=== PATIENT | female | born 1995 | race Caucasian/White ===

== ENCOUNTER 2017-02-08 12:12 | Emergency (ER) | payer OTHER ==
[~2017-02-08] VITALS: Ht 160 cm; Wt 58.7 kg
[2017-02-08] MEDS ORDERED: MONOTAB PO (12:24)
[2017-02-08 13:43] LABS: CONTROL LINE UCG INT CTR LINE PRESENT
[2017-02-08 15:12] LABS: BASO % 0.3 % (0.0-1.0); EOS # 0.2 K/mm3 (0.0-0.50); LARGE UNSTAINED CELL # 0.1 K/mm3 (0.0-0.4); LYMPH # 2.4 K/mm3 (1.5-6.5); LYMPH % 25.8 % (24.0-44.0); MEAN CORPUSCULAR HGB CONC 33.7 g/dl (32.0-36.5); MEAN CORPUSCULAR VOLUME 94.8 fl (80.0-96.0); MONO # 0.5 K/mm3 (0.0-0.8); MONO % 5.8 % (0.0-5.0); NEUTROPHILS # 5.9 K/mm3 (1.8-7.7); PLATELET COUNT, AUTOMATED 225 k/mm3 (150-450); RED CELL DISTRIBUTION WIDTH 12.3 % (11.5-14.5); WHITE BLOOD COUNT 9.1 K/mm3 (4.0-10.0)
[2017-02-08 15:15] LABS: ALBUMIN 3.7 GM/DL (3.2-5.2); ALBUMIN/GLOBULIN RATIO 1.19 (1.00-1.93); ALKALINE PHOSPHATASE 52 U/L (45-117); ALT/SGPT 22 U/L (12-78); ANION GAP 7 MEQ/L (8-16); AST/SGOT 20 U/L (15-37); BILIRUBIN,TOTAL 0.4 MG/DL (0.2-1.0); BLOOD UREA NITROGEN 12 MG/DL (7-18); CALCIUM LEVEL 8.3 MG/DL (8.5-10.1); CARBON DIOXIDE LEVEL 28 MEQ/L (21-32); CHLORIDE LEVEL 107 MEQ/L (98-107); CREATININE FOR GFR 0.66 MG/DL (0.55-1.02); GLOMERULAR FILTRATION RATE > 60.0 (>60); GLUCOSE, FASTING 85 MG/DL (70-105); POTASSIUM SERUM 4.2 MEQ/L (3.5-5.1); SODIUM LEVEL 142 MEQ/L (136-145); TOTAL PROTEIN 6.8 GM/DL (6.4-8.2)
[2017-02-08] MEDS ORDERED: GASTROGRAFIN SOLUTION 30ML (Q9963) PO ONE (16:00)
[2017-02-08] MEDS ORDERED: GASTROGRAFIN SOLUTION 30ML PO ONE (16:30)
[2017-02-08] MEDS ORDERED: ISOVUE-370 76% 100ML VIAL (Q9967) As Ordered ONE (17:18)
--- NOTE | 2017-02-08 18:00 | REPUSA ---
CT of the abdomen and pelvis with contrast Clinical statement: Pain. Technique: Multiple axial CT images were obtained from the base of the lungs through the floor of the pelvis utilizing 5 mm axial slices after administration of nonionic intravenous contrast. Coronal an d sagittal reconstructions were also obtained. No comparison is available. Findings: Chest: The visualized lung bases are clear. Abdomen: The liver, spleen, pancreas, kidneys, gallbladder, and adrenal glands are unremarkable. The aorta is within normal limits. There is no evidence of abdominal lymphadenopathy or ascites. Pelvis: The bowel is unremarkable, with no obstructive or inflammatory changes. The urinary bladder i s within normal limits. The other pelvic structures appear grossly intact. There is no evidence of pe lvic lymphadenopathy or ascites. Bones: There are no suspicious osseous abnormalities seen. Impression: Unremarkable CT examination of the abdomen and pelvis.
[2017-02-08 18:24] VITALS: BP 149/87
== END 2017-02-08 18:25 | disposition home or self-care (01) ==
LOC: M ED 12:12
DX: K92.1 Melena (principal); R19.7 Diarrhea, unspecified; R10.9 Unspecified abdominal pain; Z91.040 Latex allergy status; Z79.899 Other long term (current) drug therapy
CPT/HCPCS: 36415; 74177; 80053; 81001; 84703; 85025; 87088; 99283; Q9963; Q9967

== ENCOUNTER → 2018-02-12 | Outpatient (CLI) | payer OTHER | LOC: M WUC 18:18 | DX: S90.01XA Contusion of right ankle, initial encounter (principal); X58.XXXA Exposure to other specified factors, initial encounter; Y92.9 Unspecified place or not applicable | CPT/HCPCS: 73610 ==

== ENCOUNTER → 2018-09-17 | Outpatient (CLI) | payer OTHER ==
[~2018-09-17] MED LIST: MONOTAB PO
--- NOTE | 2018-09-17 11:43 | REP ---
RIGHT FINGERS, FOUR VIEWS: HISTORY: Pain. There is no acute fracture or dislocation. The joint spaces are normal in appearance. There is no radiopaque foreign body. IMPRESSION: There is no acute fracture or dislocation. Electronically Signed by Maynor Livingston MD 09/17/2018 11:58 A
== END ==
LOC: M WUC 10:44
PROVIDERS: ATTEND Physician Assistant
DX: M79.644 Pain in right finger(s) (principal)

== ENCOUNTER → 2019-09-05 | Outpatient (CLI) | payer BC ==
[~2019-09-05] MED LIST changes: +CONRAY-43 43% 50ML VIAL (Q9960) As Ordered ONE; +PROHANCE 279.3MG/ML 5ML VIAL (A9576) As Ordered ONE
--- NOTE | 2019-09-05 10:26 | REP ---
MR ARTHROGRAM OF THE left SHOULDER: TECHNIQUE: Axial T2 fat sat, coronal oblique T1, T2 fat sat, post arthrogram axial T1 fat sat, proton density, coronal oblique T1 fat sat, T2 sat, sagittal oblique T2 fat sat, ABER T1 fat sat. The rotator cuff tendons are intact. There is no evidence of rotator cuff tendon tear. The acromioclavicular joint is well aligned without significant hypertrophic change. There is type 1 acromion. Biceps tendon is seen within the bicipital groove, with no tenosynovitis. There is no Hill-Sachs deformity. The deltoid muscle demonstrates no abnormal signal. Biceps labral complex is intact. However, there does appear there does appear to be a partial tear of the superior labrum. Other portions of the labrum appear intact. There is no paralabral cyst. A few tiny subcortical cysts are seen in the superolateral humeral head. There is no bone marrow edema or occult fracture. Small amount of subacromial fluid is seen. IMPRESSION: Partial SLAP tear. No rotator cuff tear. Mild fluid in the subacromial bursa. Electronically Signed by Jt Ferreira MD 09/05/2019 10:59 A
--- NOTE | 2019-09-05 18:14 | REP ---
Procedure: Left shoulder arthrogram The procedure was performed under the direct supervision of Dr. Ferreira. History: Left shoulder instability The benefits and risks including but not limited to pain, infection, bleeding and anaphylaxis were explained to the patient and informed consent was obtained. Technique: The left glenohumeral joint space was localized using fluoroscopic guidance. The skin was prepped and draped in a sterile fashion. 1% lidocaine was used as a local anesthetic. Using fluoroscopic guidance a 22 gauge spinal needle was inserted and advanced into the joint. 0.5 ml of Conray 43 was injected to verify placement. 11 ml of a solution containing 20 ml of sterile saline and 0.15 ml of ProHance was injected into the joint. The needle was removed and the patient was taken to MRI for postprocedural imaging. The the patient tolerated the procedure well and there were no immediate complications. Less than 6 seconds of fluoro time was utilized for this procedure. Electronically Signed by CARLOS Mercedes 09/05/2019 05:42 P Electronically Signed by Jt Ferreira MD 09/05/2019 06:05 P
== END ==
LOC: M RADPRO 06:35
PROVIDERS: ATTEND Orthopaedic Surgery
DX: M25.312 Other instability, left shoulder (principal); M75.92 Shoulder lesion, unspecified, left shoulder
CPT/HCPCS: 23350; 73223; 77002; A9576; Q9960

== ENCOUNTER → 2019-09-26 | Outpatient (REF) | payer BC ==
[~2019-09-26] MED LIST changes: -CONRAY-43 43% 50ML VIAL (Q9960) As Ordered ONE; -PROHANCE 279.3MG/ML 5ML VIAL (A9576) As Ordered ONE
[2019-09-26 13:55] LABS: BASO % 0.6 % (0.0-1.0); EOS # 0.2 10^3/uL (0.0-0.5); EOS % 4.4 % (0.0-3.0); HEMATOCRIT 37.7 % (36.0-47.0); HEMOGLOBIN 12.9 g/dl (12.0-15.5); LYMPH # 1.9 10^3/uL (1.5-5.0); LYMPH % 36.9 % (24.0-44.0); MEAN CORPUSCULAR HEMOGLOBIN 32.1 pg (27.0-33.0); MEAN CORPUSCULAR HGB CONC 34.2 g/dl (32.0-36.5); MEAN CORPUSCULAR VOLUME 93.8 fl (80.0-96.0); MONO # 0.5 10^3/uL (0.0-0.8); MONO % 9.2 % (0.0-5.0); NEUTROPHILS # 2.5 10^3/uL (1.5-8.5); NEUTROPHILS % 48.7 % (36.0-66.0); PLATELET COUNT, AUTOMATED 225 10^3/uL (150-450); RED BLOOD COUNT 4.02 10^6/uL (4.00-5.40); WHITE BLOOD COUNT 5.2 10^3/uL (4.0-10.0)
[2019-09-26 14:08] LABS: ALBUMIN 3.4 GM/DL (3.2-5.2); ALT/SGPT 23 U/L (12-78); BILIRUBIN,TOTAL 0.2 MG/DL (0.2-1.0); BLOOD UREA NITROGEN 15 MG/DL (7-18); CALCIUM LEVEL 8.9 MG/DL (8.5-10.1); CARBON DIOXIDE LEVEL 28 MEQ/L (21-32); CHLORIDE LEVEL 108 MEQ/L (98-107); CHOLESTEROL LEVEL 178 MG/DL (<200); CREATININE FOR GFR 0.66 MG/DL (0.55-1.30); FREE T4 0.91 NG/DL (0.76-1.46); GLOMERULAR FILTRATION RATE > 60.0 (>60); GLUCOSE, FASTING 75 MG/DL (70-100); HDL CHOLESTEROL 62 MG/DL (>40); LDL CHOLESTEROL 100 MG/DL (<100); NON-HDL-C 116 MG/DL; POTASSIUM SERUM 4.4 MEQ/L (3.5-5.1); SODIUM LEVEL 139 MEQ/L (136-145); THYROID STIMULATING HORMONE 0.623 uIU/ML (0.358-3.740); TOTAL PROTEIN 6.7 GM/DL (6.4-8.2); TRIGLYCERIDES LEVEL 82 MG/DL (<150)
[2019-09-26 14:14] LABS: HEMOGLOBIN A1c 4.9 %
== END ==
LOC: M SFHCPLAZ 10:38
PROVIDERS: ATTEND Physician Assistant
DX: Z00.00 Encounter for general adult medical examination without abnormal findings (principal); Z13.220 Encounter for screening for lipoid disorders; Z13.29 Encounter for screening for other suspected endocrine disorder; Z13.1 Encounter for screening for diabetes mellitus

== ENCOUNTER 2020-01-04 20:36 | Emergency (ER) | payer BC ==
[~2020-01-04] VITALS: Ht 165.1 cm; Wt 57.3 kg
[2020-01-04] MEDS ORDERED: LEXA5TAB13 PO (20:45)
[2020-01-04] MEDS ORDERED: NS 1,000 ML IV ONE (21:30)
[2020-01-04 22:03] LABS: BASO % 0.7 % (0.0-1.0); EOS # 0.2 10^3/uL (0.0-0.5); EOS % 2.9 % (0.0-3.0); HEMATOCRIT 35.5 % (36.0-47.0); HEMOGLOBIN 11.9 g/dl (12.0-15.5); LYMPH # 2.6 10^3/uL (1.5-5.0); LYMPH % 43.9 % (24.0-44.0); MEAN CORPUSCULAR HEMOGLOBIN 31.1 pg (27.0-33.0); MEAN CORPUSCULAR HGB CONC 33.5 g/dl (32.0-36.5); MEAN CORPUSCULAR VOLUME 92.7 fl (80.0-96.0); MONO # 0.6 10^3/uL (0.0-0.8); MONO % 9.4 % (0.0-5.0); NEUTROPHILS # 2.5 10^3/uL (1.5-8.5); NEUTROPHILS % 42.9 % (36.0-66.0); PLATELET COUNT, AUTOMATED 228 10^3/uL (150-450); RED BLOOD COUNT 3.83 10^6/uL (4.00-5.40); WHITE BLOOD COUNT 5.8 10^3/uL (4.0-10.0)
[2020-01-04 22:38] LABS: ALBUMIN 3.9 GM/DL (3.2-5.2); ALT/SGPT 22 U/L (12-78); BILIRUBIN,DIRECT < 0.1 MG/DL (0.0-0.2); BILIRUBIN,TOTAL 0.4 MG/DL (0.2-1.0); BLOOD UREA NITROGEN 13 MG/DL (7-18); CALCIUM LEVEL 9.1 MG/DL (8.5-10.1); CARBON DIOXIDE LEVEL 27 MEQ/L (21-32); CHLORIDE LEVEL 109 MEQ/L (98-107); CREATININE FOR GFR 0.73 MG/DL (0.55-1.30); GLOMERULAR FILTRATION RATE > 60.0 (>60); GLUCOSE, FASTING 82 MG/DL (70-100); LIPASE 94 U/L (73-393); POTASSIUM SERUM 4.2 MEQ/L (3.5-5.1); SODIUM LEVEL 142 MEQ/L (136-145)
[2020-01-04] MEDS: GASTROGRAFIN SOLUTION 30ML PO SCH ×2 (22:54→23:15)
[2020-01-04 23:01] LABS: HCG, SERUM QUALITATIVE NEGATIVE (NEGATIVE)
[2020-01-04] MEDS ORDERED: ISOVUE-370 76% 100ML VIAL As Ordered ONE (23:13)
--- NOTE | 2020-01-05 | REPVR ---
PROCEDURE INFORMATION: Exam: CT Abdomen And Pelvis With Contrast Exam date and time: 01/04/2020 10:15 PM Age: 24 years old Clinical indication: Abdominal pain; Localized; Right lower quadrant (rlq); Additional info: Rlq pain TECHNIQUE: Imaging protocol: Computed tomography of the abdomen and pelvis with intravenous contrast. Radiation optimization: All CT scans at this facility use at least one of these dose optimization techniques: automated exposure control; mA and/or kV adjustment per patient size (includes targeted exams where dose is matched to clinical indication); or iterative reconstruction. Contrast material: ISO; Contrast volume: 100 ml; Contrast route: INTRAVENOUS (IV); Other contrast: Oral, ggraphin, 600; COMPARISON: CT ABD/PEL W/IV ORAL CONTRAS 2017-02-08 17:16 FINDINGS: Liver: Normal. No mass. Gallbladder and bile ducts: Normal. No calcified stones. No ductal dilation. Pancreas: Normal. No ductal dilation. Spleen: Normal. No splenomegaly. Adrenals: Normal. No mass. Kidneys and ureters: Normal. No hydronephrosis. Stomach and bowel: Constipation. Appendix: Normal appendix. Intraperitoneal space: Unremarkable. No free air. No significant fluid collection. Vasculature: Unremarkable. No abdominal aortic aneurysm. Lymph nodes: Unremarkable. No enlarged lymph nodes. Bladder: Unremarkable as visualized. Reproductive: IUD present appropriately positioned. Uterus tilted towards the left. Bones/joints: Unremarkable. No acute fracture. Soft tissues: Unremarkable. IMPRESSION: 1. Constipation. 2. Normal appendix. Electronically signed by: Fredy Reynolds On 01/05/2020 00:00:42 AM
--- NOTE | 2020-01-05 01:36 | REPVR ---
PROCEDURE INFORMATION: Exam: US Pelvis Complete, Transabdominal and US Pelvis, Transvaginal Exam date and time: 01/05/2020 1:00 AM Age: 24 years old Clinical indication: Pelvic pain; Additional info: Rlq pain R/O ovarian cyst/torsion/iud complication TECHNIQUE: Imaging protocol: Real-time transabdominal and transvaginal pelvic ultrasound (complete) with image documentation. Transvaginal imaging was used for better evaluation of the endometrium and adnexa. COMPARISON: CT ABD/PEL W/IV ORAL CONTRAS 01/04/2020 11:29 PM FINDINGS: Uterus/cervix: Uterus measures 6.2 x 2.1 x 3.5 cm. Uterus is anteverted. IUD in the uterus. No uterine masses. Endometrial stripe measures 3.4 mm in thickness. Right adnexa: Right ovary measures 2.0 x 1.4 x 1.9 cm. No masses. Normal vascular flow. Left adnexa: Left ovary measures 1.4 x 1.4 x 1.2 cm. No masses. Normal vascular flow. Free fluid: Trace fluid in the cul-de-sac. Bladder: Bladder is unremarkable. IMPRESSION: 1. No evidence of ovarian torsion or cyst. 2. IUD in the uterus. Electronically signed by: Jefe Pompa On 01/05/2020 01:35:54 AM
[2020-01-05] MEDS ORDERED: MAGNESIUM CITRATE 300 ML BTL PO ONE (02:45)
[2020-01-05 03:00] VITALS: BP 149/95
== END 2020-01-05 03:28 | disposition home or self-care (01) ==
LOC: M ED 20:36
DX: K59.00 Constipation, unspecified (principal); Z97.5 Presence of (intrauterine) contraceptive device; J45.909 Unspecified asthma, uncomplicated; F41.9 Anxiety disorder, unspecified; Z79.899 Other long term (current) drug therapy; Z88.8 Allergy status to other drugs, medicaments and biological substances; Z91.040 Latex allergy status
CPT/HCPCS: 74177; 76830; 76856; 80048; 80076; 81001; 83690; 84702; 84703; 85025; 93041; 93976; 96361; 99285; Q9963; Q9967

== ENCOUNTER → 2020-02-16 | Outpatient (CLI) | payer BC ==
[~2020-02-16] MED LIST changes: +LEXA5TAB13 PO
[2020-02-16 19:11] LABS: HEMATOCRIT 37.1 % (36.0-47.0); HEMOGLOBIN 12.3 g/dl (12.0-15.5); MEAN CORPUSCULAR HGB CONC 33.2 g/dl (32.0-36.5); MEAN CORPUSCULAR VOLUME 93.5 fl (80.0-96.0); PLATELET COUNT, AUTOMATED 221 10^3/uL (150-450); RED BLOOD COUNT 3.97 10^6/uL (4.00-5.40); WHITE BLOOD COUNT 6.8 10^3/uL (4.0-10.0)
== END ==
LOC: M PLALAB 15:03
PROVIDERS: ATTEND Physician Assistant
DX: R42 Dizziness and giddiness (principal)

== ENCOUNTER → 2020-05-09 | Outpatient (CLI) | payer SELFPAY | LOC: M LABSMTC 13:37 | PROVIDERS: ATTEND Pediatrics | DX: Z20.828 Contact with and (suspected) exposure to other viral communicable diseases (principal) ==

== ENCOUNTER → 2020-07-06 | Outpatient (CLI) | payer BC | LOC: M LABSMTC 09:53 | PROVIDERS: ATTEND Anesthesiology | DX: Z01.812 Encounter for preprocedural laboratory examination (principal); Z20.822 Contact with and (suspected) exposure to COVID-19 ==

== ENCOUNTER 2020-07-11 06:08 | Day surgery (SDC) | payer BC ==
[~2020-07-11] VITALS: Ht 165.1 cm; Wt 59.5 kg
[~2020-07-11 06:08] MED LIST changes: +LR 1,000 ML IV ONE; +ceFAZolin SOD 2 GM in IV 1 EA IV ONE
--- OUTSIDE RECORDS SUMMARY | 2020-07-11 06:13 | CCD ---
Author Author [facility] Organization [facility] Address Unknown Phone Unavailable Care Team Providers Care Forging Die Sinker Name Role Phone Denise Garces Unavailable PROBLEMS Type Condition ICD9-CM Code [id number] Code Onset Dates Condition S tatus SNOMED Code Notes Problem Vitamin D deficiency E55.9 Active 25715930 Problem Slow transit constipation K59.01 Active 085900 07 Problem Allergic rhinitis, unspecified seasonality, unspecifie d trigger J30.9 Active 85069795 Problem Mild intermittent asthma without complication J45. 20 Active 604014098 Problem Anxiety F41.9 Active 69468917 ALLERGIES Allergen (clinical drug ingredient) Drug/Non Drug Allergy do cumented on EMR Reaction Allergy Type Onset Date Status Chlorhexidine Hives Drug Allergy Active ENCOUNTERS from 1994 to 2020-05-26 Encounter Location Date Provider Diagnosis [address] [address] May, Denise Dez IMMUNIZATIONS No Information SOCIAL HISTORY Tobacco Use: Social History Observation Description Date Details (start date - stop date) Never Smoker Sex Assigned At : Social History Observation Description Sex Assigned At Unknown Education: Question Answer Notes Level of Education: College Audit Question Answer Notes Total Score: 1 Interpretation: Alcohol Education Language: Question Answer Notes Languages spoken: Mongolian Sikh: Question Answer Notes Sikh No sikhism beliefs that would impact health care. Sexual Hx: Question Answer Notes Had sex in the last 12 months (vaginal, oral, or anal)? Yes LMP: 09/07/2019 Have you ever had an STD? No with Men only Use protection? No Drug and Alcohol Question Answer Notes Total Score: 0 Interpretation: No problems reported Tobacco Use: Question Answer Notes Are you a: never smoker REASON FOR REFERRAL No Information VITAL SIGNS No information MEDICATIONS Medication SIG (Take, Route, Frequency, Duration) Notes Start Da te End Date Status Jazmyne Active Griseofulvin Microsize 500 MG 1 tablet with a meal Ora lly Once a day (take at separate time from control pill) for 30 days Not-Taking Clotrimazole-Betamethasone 1-0.05 % 1 application Exte rnally Twice a day to scalp rash for 30 days Not-Takin g Escitalopram Oxalate 5 MG 1 tablet Orally Once a day for 30 Days Active Ketoconazole Active Albuterol Sulfate HFA 108 (90 Base) MCG/ACT 1 puff as needed Inhalation every 4 hrs Active Adapalene-Benzoyl Peroxide Active Enskyce 0.15-30 MG-MCG 1 tablet Orally Once a day for 28 day(s) Not-Taking PROCEDURES No Information RESULTS No Results REASON FOR VISIT test strips MEDICAL (GENERAL) HISTORY Type Description Date Medical History asthma Surgical History hammertoe repair x2 , bunion repair x2 2 010 Surgical History left shoulder-bursitis Surgical History wisdom teeth extraction Hospitalization History observation- sepsis? child Goals Section No Information Health Concerns No Information MEDICAL EQUIPMENT No Information MENTAL STATUS No Information FUNCTIONAL STATUS No Information ASSESSMENTS No Information PLAN OF TREATMENT Medication Medication Name Sig Start Date Stop Date Escitalopram Oxalate 5 MG 1 tablet Orally Once a day for 30 Days Insurance Providers Payer Name Payer Address Payer Phone Insured Name Patient Relati onship to Insured Coverage Start Date Coverage End Date [facility] [phone] [facility] [employer] [facility] [place] [facility] [id number] QUENTIN URIOSTEGUI self
--- OUTSIDE RECORDS SUMMARY | 2020-07-11 06:13 | CCD ---
Author Author [facility] Organization [facility] Address Unknown Phone Unavailable Care Team Providers Care Circuit Recorder Name Role Phone Denise Garces Unavailable PROBLEMS Type Condition ICD9-CM Code [id number] Code Onset Dates Condition S tatus SNOMED Code Notes Problem Vitamin D deficiency E55.9 Active 01705662 Problem Slow transit constipation K59.01 Active 453805 07 Problem Allergic rhinitis, unspecified seasonality, unspecifie d trigger J30.9 Active 75554038 Problem Mild intermittent asthma without complication J45. 20 Active 876117526 Problem Anxiety F41.9 Active 50685811 ALLERGIES Allergen (clinical drug ingredient) Drug/Non Drug Allergy do cumented on EMR Reaction Allergy Type Onset Date Status Chlorhexidine Hives Drug Allergy Active ENCOUNTERS from 1994 to 2020-05-09 Encounter Location Date Provider Diagnosis [address] [address] Dec, Denise Garces Slow transit constipation K59.01 IMMUNIZATIONS No Information SOCIAL HISTORY Tobacco Use: Social History Observation Description Date Details (start date - stop date) Never Smoker Sex Assigned At : Social History Observation Description Sex Assigned At Unknown Education: Question Answer Notes Level of Education: College Audit Question Answer Notes Total Score: 1 Interpretation: Alcohol Education Language: Question Answer Notes Languages spoken: Citizen Of [place] Samaritan: Question Answer Notes Samaritan No latter day beliefs that would impact health care. Sexual [...] REASON FOR REFERRAL No Information VITAL SIGNS Weight 127 lbs Dec, Height 65 in Dec, BMI 21.13 kg/m2 Dec, Heart Rate 78 /min Dec, Respiratory Rate 18 /min Dec, Temperature 97.6 degrees Fahrenheit Dec, Oximetry 100 Dec, Blood pressure systolic 110 mm Hg Dec, Blood pressure diastolic 78 mm Hg Dec, MEDICATIONS Medication SIG (Take, Route, Frequency, Duration) Notes Start Da te End Date Status Jazmyne Active Clotrimazole-Betamethasone 1-0.05 % 1 application Exte rnally Twice a day to scalp rash for 30 days Not-Takin g Escitalopram Oxalate 5 MG 1 tablet Orally Once a day for 30 Active Enskyce 0.15-30 MG-MCG 1 tablet Orally Once a day for 28 day(s) Not-Taking Ketoconazole Active Albuterol Sulfate HFA 108 (90 Base) MCG/ACT 1 puff as needed Inhalation every 4 hrs Active Adapalene-Benzoyl Peroxide Active Griseofulvin Microsize 500 MG 1 tablet with a meal Ora lly Once a day (take at separate time from control pill) for 30 days Not-Taking PROCEDURES No Information RESULTS No Results REASON FOR VISIT [facility] Follow up MEDICAL (GENERAL) HISTORY Type Description Date Medical History asthma Surgical History hammertoe repair x2 , bunion repair x2 2 010 Surgical History left shoulder-bursitis Surgical History wisdom teeth extraction Hospitalization History observation- sepsis? child Goals Section No Information Health Concerns No Information MEDICAL EQUIPMENT No Information MENTAL STATUS No Information FUNCTIONAL STATUS No Information ASSESSMENTS Encounter Date Diagnosis Assessment Notes Treatment Notes Treatm ent Clinical Notes Dec, Slow transit constipation (ICD-10 - K59.01) patient is going to try Mg citrate, if her symptoms continue after 1 weeks she will RTO PLAN OF TREATMENT Medication Medication Name Sig Start Date Stop Date Escitalopram Oxalate 5 MG 1 tablet Orally Once a day for 30 Treatment Notes Assessment Notes Clinical Notes Slow transit constipation patient is goi ng to try Mg citrate, if her symptoms continue after 1 weeks she will RTO Next Appt Details prn Reason: Insurance Providers Payer Name Payer Address Payer Phone Insured Name Patient Relati onship to Insured Coverage Start Date Coverage End Date BCBS [place] PPO [phone] [facility] [place] [address] QUENTIN URIOSTEGUI self
--- OUTSIDE RECORDS SUMMARY | 2020-07-11 06:13 | CCD ---
Author Author [facility] Organization [facility] Address Unknown Phone Unavailable Care Team Providers Care Development Technologist Name Role Phone Denise Garces Unavailable PROBLEMS Type Condition ICD9-CM Code [id number] Code Onset Dates Condition S tatus SNOMED Code Notes Problem Vitamin D deficiency E55.9 Active 95778983 Problem Slow transit constipation K59.01 Active 715612 07 Problem Allergic rhinitis, unspecified seasonality, unspecifie d trigger J30.9 Active 22229971 Problem Mild intermittent asthma without complication J45. 20 Active 510867161 Problem Anxiety F41.9 Active 30065848 ALLERGIES Allergen (clinical drug ingredient) Drug/Non Drug Allergy do cumented on EMR Reaction Allergy Type Onset Date Status Chlorhexidine Hives Drug Allergy Active ENCOUNTERS from 1994 to 2020-05-22 Encounter Location Date Provider Diagnosis [address] [address] Apr, Denise Dez IMMUNIZATIONS No Information SOCIAL HISTORY Tobacco Use: Social History Observation Description Date Details (start date - stop date) Never Smoker Sex Assigned At : Social History Observation Description Sex Assigned At Unknown Education: Question Answer Notes Level of Education: College Audit Question Answer Notes Total Score: 1 Interpretation: Alcohol Education Language: Question Answer Notes Languages spoken: Anguillan Alevism: Question Answer Notes Alevism No synagogue beliefs that would impact health care. Sexual [...] Information RESULTS No Results REASON FOR VISIT Sinus, cough MEDICAL (GENERAL) HISTORY Type Description Date Medical [...] tablet Orally Once a day for 30 Insurance Providers Payer Name Payer Address Payer Phone Insured Name Patient Relati onship to Insured Coverage Start Date Coverage End Date BCED PHILIP PPO [phone] [facility] [employer] [facility] [facility] [place] [facility] [id number] QUENTIN URIOSTEGUI self
--- OUTSIDE RECORDS SUMMARY | 2020-07-11 06:13 | CCD ---
Author Author [facility] Organization [facility] Address Unknown Phone Unavailable Care Team Providers Care Flight Operations Specialist Name Role Phone Raina Canela Unavailable PROBLEMS Type Condition ICD9-CM Code [id number] Code Onset Dates Condition S tatus SNOMED Code Notes Problem Vitamin D deficiency E55.9 Active 77939270 Problem Slow transit constipation K59.01 Active 292432 07 Problem Allergic rhinitis, unspecified seasonality, unspecifie d trigger J30.9 Active 96396035 Problem Mild intermittent asthma without complication J45. 20 Active 111201482 Problem Anxiety F41.9 Active 44063134 ALLERGIES Allergen (clinical drug ingredient) Drug/Non Drug Allergy do cumented on EMR Reaction Allergy Type Onset Date Status Chlorhexidine Hives Drug Allergy Active ENCOUNTERS from 1994 to 2020-06-13 Encounter Location Date Provider Diagnosis [address] [address] May, Raina Milleries IMMUNIZATIONS No Information SOCIAL HISTORY Tobacco Use: Social History Observation Description Date Details (start date - stop date) Never Smoker Sex Assigned At : Social History Observation Description Sex Assigned At Unknown Education: Question Answer Notes Level of Education: College Audit Question Answer Notes Total Score: 1 Interpretation: Alcohol Education Language: Question Answer Notes Languages spoken: Montenegrin Congregation: Question Answer Notes Congregation No scientology beliefs that would impact health care. Sexual [...] Notes Start Da te End Date Status Augmentin 875-125 MG 1 tablet Orally Twice a day for 10 day(s) May, Active Diflucan 150 MG 1 tablet Orally take at onse t of symptoms; repeat after 72 hours if your symptoms persist for 4 days May, Active Ketoconazole Active Albuterol Sulfate HFA 108 (90 Base) MCG/ACT 1 puff as needed Inhalation every 4 hrs Active Escitalopram Oxalate 5 MG 1 tablet Orally Once a day for 90 day(s) Active Jazmyne Active Adapalene-Benzoyl Peroxide Active PROCEDURES No Information RESULTS No Results REASON FOR VISIT Sinus, swollen lymph nodes MEDICAL (GENERAL) HISTORY Type Description Date Medical [...] Medication Name Sig Start Date Stop Date Augmentin 875-125 MG 1 tablet Orally Twice a day for 10 day(s) 2 3 May, 2020 Escitalopram Oxalate 5 MG 1 tablet Orally Once a day for 90 day( s) Diflucan 150 MG 1 tablet Orally take at onse t of symptoms; repeat after 72 hours if your symptoms persist for 4 days May, Insurance Providers Payer Name Payer Address Payer Phone Insured Name Patient Relati onship to Insured Coverage Start Date Coverage End Date BCBS [place] PPO [phone] [facility] [place] [facility] [place] [address] QUENTIN URIOSTEGUI self
--- OUTSIDE RECORDS SUMMARY | 2020-07-11 06:13 | CCD ---
Author Author [facility] Organization [facility] Address Unknown Phone Unavailable Care Team Providers Care Risk Tech Name Role Phone Raina Canela Unavailable PROBLEMS Type Condition ICD9-CM Code [id number] Code Onset Dates Condition S tatus SNOMED Code Notes Problem Vitamin D deficiency E55.9 Active 34363515 Problem Slow transit constipation K59.01 Active 784057 07 Problem Allergic rhinitis, unspecified seasonality, unspecifie d trigger J30.9 Active 83254867 Problem Mild intermittent asthma without complication J45. 20 Active 896974205 Problem Anxiety F41.9 Active 47829371 ALLERGIES Allergen (clinical drug ingredient) Drug/Non Drug Allergy do cumented on EMR Reaction Allergy Type Onset Date Status Chlorhexidine Hives Drug Allergy Active ENCOUNTERS from 1994 to 2020-06-19 Encounter Location Date Provider Diagnosis [address] [address] May, Raina Canela Acute non-recurrent sinusitis, unspecifi ed location J01.90 IMMUNIZATIONS No Information SOCIAL HISTORY Tobacco Use: Social History Observation Description Date Details (start date - stop date) Never Smoker Sex Assigned At : Social History Observation Description Sex Assigned At Unknown Education: Question Answer Notes Level of Education: College Audit Question Answer Notes Total Score: 1 Interpretation: Alcohol Education Language: Question Answer Notes Languages spoken: Tongan Jewish: Question Answer Notes Jewish No quaker beliefs that would impact health care. Sexual [...] FOR REFERRAL No Information VITAL SIGNS Weight 132 lbs May, Height 65 in May, BMI 21.96 kg/m2 May, Heart Rate 80 /min May, Respiratory Rate 18 /min May, Temperature 97.6 degrees Fahrenheit May, Oximetry 100 May, Blood pressure systolic 120 mm Hg May, Blood pressure diastolic 80 mm Hg May, MEDICATIONS Medication SIG (Take, Route, Frequency, Duration) [...] Notes Treatment Notes Treatm ent Clinical Notes May, Acute non-recurrent sinusiti s, unspecified location (ICD-10 - J01.90) Will treat for sinusitis; Diflucan in the event of a yeast infection. Rest, fluids. F/U for reg appts with PCP PLAN OF TREATMENT Medication Medication Name Sig Start Date Stop Date Augmentin 875-125 MG 1 tablet Orally Twice a day for 10 day(s) 2 May, Escitalopram Oxalate 5 MG 1 tablet Orally Once a day for 90 day( s) Diflucan 150 MG 1 tablet Orally take at onse t of symptoms; repeat after 72 hours if your symptoms persist for 4 days May, Treatment Notes Assessment Notes Clinical Notes Acute non-recurrent sinusitis, unspecified location Wi ll treat for sinusitis; Diflucan in the event of a yeast infection. Rest, fluids. F/U for reg appts with PCP Insurance Providers Payer Name Payer Address Payer Phone Insured Name Patient Relati onship to Insured Coverage Start Date Coverage End Date [place] [employer]ILIP PPO [phone] [facility] [employer] [place] [address] QUENTIN URIOSTEGUI self
--- OUTSIDE RECORDS SUMMARY | 2020-07-11 06:14 | CCD ---
Continuity of Care Document (CCD) Created on: 04/12/2020 Deanna Bob External Reference #: [id number] : [id number] Sex: Female Author Author Deanna OCHOA Organization Unknown Address [address] [place] [id number] Phone [phone] Problems Description No Information Available Social History Type Date Description Comments Sex Unknown Tobacco Use Start: Unknown Never Smoked Cigarettes Tobacco Use Start: Unknown Never Smoked Cigars Tobacco Use Start: Unknown Never Smoked A Pipe Tobacco Use Start: Unknown Never Used Smokeless Tobacco ETOH Use Occasionally consumes alcohol Tobacco Use Start: Unknown Patient has never smoked Recreational Drug Use Denies Drug Use Exercise Type/Frequency Exercises regularly Allergies, Adverse Reactions, Alerts Active Allergies Reaction Severity Comments Date Latex Urticaria Moderate 03/17/2017 NKFA 12/28/2017 Chlorhexidine Hives Moderate 10/19/2019 Inactive Allergies NKDA 12/28/2017 Medications Active Medications SIG Qnty Indications Ordering Provide r Date Jazmyne 13.5mg IUD intrauterine device inserted into uterus good for 3 yrs 1units Z30.014 Ike Sheffield M.D. 10/25/2019 Escitalopram Oxalate 5mg Tablets daily Unknown Adapalene-Benzoyl Peroxide 0.1-2.5 % Gel apply a small amount to face as needed Unknown Mometasone Furoate 0.1% Solution apply to ears as needed Unknown Ketoconazole 2% Shampoo apply to scalp and shampoo once every 3 days for 4 weeks. allow to run down neck and upper chest then rinse off Unknown History Medications Metronidazole 500mg Tablets one tab by mouth twice daily for 7 days 14tabs N76.0 Ike Morgan M.D. 03/08/2020 - 03/15/2020 Metronidazole 500mg Tablets one tab by mouth twice daily for 7 days 14tabs N76.0 Ike Morgan M.D. 11/01/2019 - 11/08/2019 Cleocin 2% Cream 1 applicator in vagina at bedtime for 7 days 40gm N76.0 Ike Morgan M.D. 10/18 - 11/01/2019 Immunizations Description No Information Available Vital Signs Date Vital Result Comment 04/12/2020 1:01pm BP Systolic 110 mmHg BP Diastolic 75 mmHg Heart Rate 75 /min Body Temperature 98.6 F Weight 130.00 lb Weight 58.968 kg Height 65 inches 5'5" BMI (Body Mass Index) 21.6 kg/m2 BSA (Body Surface Area) 1.65 m2 03/08/2020 3:28pm BP Systolic 105 mmHg BP Diastolic 65 mmHg Heart Rate 70 /min Body Temperature 98.6 F Weight 127.00 lb Weight 57.607 kg Height 65 inches 5'5" BMI (Body Mass Index) 21.1 kg/m2 BSA (Body Surface Area) 1.63 m2 Results Test Acquired Date Facility Test Result H/L Range Note Order 03/08/2020 [facility] Office [facility] Laboratory test finding 11/03/2019 In Office Inhouse Urine Test negative Chlamydia GC/Am 11/01/2019 [facility] Source: Genital 1 Chlamydia trachomatis,Supriya Negative Negative Neisseria gonorrhoeae,Supriya Negative Negative Order 11/01/2019 In Office [facility] Order 10/19/2019 In Office [facility] clue 1 {SOURCE: Genital~.~.~N76.0 Procedures Description No Information Available Medical Devices Description No Information Available Encounters Type Date Location Provider Dx Diagnosis Office Visit 04/12/2020 1:[address]p [facility] Afsaneh Barrios NP Z01.419 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 (general) (routine) w/o abn findings Assessments Date Code Description Provider 04/12/2020 Z01.419 Encounter for gyneco logical examination (general) (routine) without abnormal findings Afsaneh Barrios NP 03/08/2020 N76.0 Acute vaginitis Afsaneh Barrios NP 12/05/2019 Z30.431 Encounter for routin e checking of intrauterine contraceptive device Afsaneh Barrios NP 11/03/2019 Z30.430 Encounter for insertion of intra uterine contraceptive device Afsaneh Piper'nico, INA 11/01/2019 N76.0 Acute vaginitis Afsaneh Barrios NP 10/25/2019 Z30.014 Encounter for initia l prescription of intrauterine contraceptive device Afsaneh Piper'nico, INA 10/19/2019 N76.0 Acute vaginitis Afsaneh Barrios NP Plan of Treatment 04/12/2020 - Afsaneh Barrios NP* Z01.419 Encounter for gynecological examination (general) (routine) without abnormal findings* Follow up:* 1 year. * Instructions:* Call for problems or questions Functional Status Functional Condition Comment Date Status Contacts Active Mental Status Description No Information Available Referrals Description No Information Available
--- OUTSIDE RECORDS SUMMARY | 2020-07-11 06:14 | CCD ---
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 [employer] Head Name Role Phone Sunitha ZABALA DPM Unavailable Unavailable Sunitha ZABALA DPM Unavailable Unavailable Sunitha ZABALA DPM Unavailable Unavailable Sunitha ZABALA DPM Unavailable Unavailable Sunitha ZABALA DPM Unavailable Unavailable Sunitha ZABALA DPM Unavailable Unavailable Sunitha ZABALA DPM Unavailable Unavailable Sunitha ZABALA DPM Unavailable Unavailable Sunitha ZABALA DPM Unavailable Unavailable Sunitha ZABALA DPM Unavailable Unavailable Sunitha ZABALA DPM Unavailable Unavailable Sunitha ZABALA DPM Unavailable Unavailable Sunitha ZABALA DPM Unavailable Unavailable Sunitha ZABALA DPM Unavailable Unavailable Sunitha ZABALA DPM Unavailable Unavailable Sunitha ZABALA DPM Unavailable Unavailable Sunitha ZABALA DPM Unavailable Unavailable Sunitha ZABALA DPM Unavailable Unavailable Sunitha ZABALA DPM Unavailable Unavailable Sunitha ZABALA DPM Unavailable Unavailable MAJAK, R MARCIA DPM Unavailable Unavailable MAJAK, R MARCIA DPM Unavailable Unavailable MAJAK, R MARCIA DPM Unavailable Unavailable MAJAK, R MARCIA DPM Unavailable Unavailable MAJAK, R MARCIA DPM Unavailable Unavailable MAJAK, R MARCIA DPM Unavailable Unavailable MAJAK, R MARCIA DPM Unavailable Unavailable MAJAK, R MARCIA DPM Unavailable Unavailable MAJAK, R MARCIA DPM Unavailable Unavailable MAJAK, R MARCIA DPM Unavailable Unavailable Campanaro, Mare Melissa PA Unavailable Unavailable Campanaro, Mare Melissa PA Unavailable Unavailable Campanaro, Mare Melissa PA Unavailable Unavailable Campanaro, Mare Melissa PA Unavailable Unavailable Campanaro, Mare Melissa PA Unavailable Unavailable Campanaro, Mare Melissa PA Unavailable Unavailable Campanaro, Mare Melissa PA Unavailable Unavailable Campanaro, Mare Melissa PA Unavailable Unavailable Campanaro, Mare Melissa PA Unavailable Unavailable Campanaro, Mare Melissa PA Unavailable Unavailable Campanaro, Mare Melissa PA Unavailable Unavailable Campanaro, Mare Melissa PA Unavailable Unavailable Campanaro, Mare Melissa PA Unavailable Unavailable Campanaro, Mare Melisas PA Unavailable Unavailable Campanaro, Mare Melissa PA Unavailable Unavailable Campanaro, Mare Melissa PA Unavailable Unavailable Campanaro, Mare Melissa PA Unavailable Unavailable Campanaro, Mare Melissa PA Unavailable Unavailable Gloria Ryan MD Unavailable Unavailable Gloria Ryan MD Unavailable Unavailable Gloria Ryan MD Unavailable Unavailable Gloria Ryan MD Unavailable Unavailable Gloria Ryan MD Unavailable Unavailable Golria Ryan MD Unavailable Unavailable Gloria Ryan MD Unavailable Unavailable Gloria Ryan MD Unavailable Unavailable Gloria Ryan MD Unavailable Unavailable Gloria Ryan MD Unavailable Unavailable Gloria Ryan MD Unavailable Unavailable Gloria Ryan MD Unavailable Unavailable Gloria Ryan MD Unavailable Unavailable Gloria Ryan MD Unavailable Unavailable Gloria Ryan MD Unavailable Unavailable Gloria Ryan MD Unavailable Unavailable Gloria Ryan MD Unavailable Unavailable Gloria Ryan MD Unavailable Unavailable Gloria Ryan MD Unavailable Unavailable Gloria Ryan MD Unavailable Unavailable Gloria Ryan MD Unavailable Unavailable VaneenenaamGloria MD Unavailable Unavailable Vaneenenaam, Gloria Duncan MD Unavailable Unavailable Vaneenenaam, Gloria Duncan MD Unavailable Unavailable Vaneenenaam, Gloria Duncan MD Unavailable Unavailable Vaneenenaam, Gloria Duncan MD Unavailable Unavailable Vaneensedaam, Gloria Duncan MD Unavailable Unavailable Vaneensedaam, Gloria Duncan MD Unavailable Unavailable Vaneensamantha, Gloria Duncan MD Unavailable Unavailable Vaneenenaam, Gloria Duncan MD Unavailable Unavailable Vaneenenaam, Gloria Duncan MD Unavailable Unavailable Vaneenenaam, Gloria Duncan MD Unavailable Unavailable Vaneenenaam, Gloria Duncan MD Unavailable Unavailable Vaneenenaam, Gloria Duncan MD Unavailable Unavailable Vaneensedaam, Gloria Duncan MD Unavailable Unavailable Vaneenenaam, Gloria Duncan MD Unavailable Unavailable Vaneenenaam, Gloria Duncan MD Unavailable Unavailable Vaneenenaam, Gloria Duncan MD Unavailable Unavailable Vaneenenaam, Gloria Duncan MD Unavailable Unavailable Vaneenenaam, Gloria Duncan MD Unavailable Unavailable Vaneensedaam, Gloria Duncan MD Unavailable Unavailable Vaneenenaam, Gloria Duncan MD Unavailable Unavailable Vaneenenaam, Gloria Duncan MD Unavailable Unavailable Vaneenenaam, Gloria Duncan MD Unavailable Unavailable JEAN BAPTISTE, HEVER CELESTINA PAD MAKING MACHINE OPERATOR Unavailable Unavailable JEAN BAPTISTE, HEVER CELESTINA PAD MAKING MACHINE OPERATOR Unavailable Unavailable JEAN BAPTISTE, HEVER CELESTINA PAD MAKING MACHINE OPERATOR Unavailable Unavailable JEAN BAPTISTE, HEVER CELESTINA PAD MAKING MACHINE OPERATOR Unavailable Unavailable JEAN BAPTISTE, HEVER CELESTINA PAD MAKING MACHINE OPERATOR Unavailable Unavailable JEANB APTISTE, HEVER CELESTINA PAD MAKING MACHINE OPERATOR Unavailable Unavailable JEAN BAPTISTE, HEVER CELESTINA PAD MAKING MACHINE OPERATOR Unavailable Unavailable JEAN BAPTISTE, HEVER CELESTINA PAD MAKING MACHINE OPERATOR Unavailable Unavailable JEAN BAPTISTE, HEVER CELESTINA PAD MAKING MACHINE OPERATOR Unavailable Unavailable JEAN BAPTISTE, HEVER CELESTINA PAD MAKING MACHINE OPERATOR Unavailable Unavailable JEAN BAPTISTE, HEVER CELESTINA PAD MAKING MACHINE OPERATOR Unavailable Unavailable JEAN BAPTISTE, HEVER CELESTINA PAD MAKING MACHINE OPERATOR Unavailable Unavailable JEAN BAPTISTE, HEVER CELESTINA PAD MAKING MACHINE OPERATOR Unavailable Unavailable JEAN BAPTISTE, HEVER CELESTINA PAD MAKING MACHINE OPERATOR Unavailable Unavailable JEAN BAPTISTE, HEEVR CELESTINA PAD MAKING MACHINE OPERATOR Unavailable Unavailable JEAN BAPTISTE, HEVER CELESTINA PAD MAKING MACHINE OPERATOR Unavailable Unavailable JEAN BAPTISTE, HEVER CELESTINA PAD MAKING MACHINE OPERATOR Unavailable Unavailable JEAN BAPTISTE, HEVER CELESTINA PAD MAKING MACHINE OPERATOR Unavailable Unavailable JEAN BAPTISTE, HEVER CELESTINA PAD MAKING MACHINE OPERATOR Unavailable Unavailable JEAN BAPTISTE, HEVER CELESTINA PAD MAKING MACHINE OPERATOR Unavailable Unavailable JEAN BAPTISTE, HEVER CELESTINA PAD MAKING MACHINE OPERATOR Unavailable Unavailable JEAN BAPTISTE, HEVER CELESTINA PAD MAKING MACHINE OPERATOR Unavailable Unavailable JEAN BAPTISTE, HEVER CELESTINA PAD MAKING MACHINE OPERATOR Unavailable Unavailable NO, PCP Unavailable Unavailable Re-disclosure Warning The records that you are about to access may contain information from federally-assisted alcohol or drug abuse programs. If such information is present, then the following federally mandated warning applies: This information has been disclosed to you from records protected by federal confidentiality rules (42 CFR part 2). The federal rules prohibit you from making any further disclosure of this information unless further disclosure is expressly permitted by the written consent of the person to whom it pertains or as otherwise permitted by 42 CFR part 2. A general authorization for the release of medical or other information is NOT sufficient for this purpose. The Federal rules restrict any use of the information to criminally investigate or prosecute any alcohol or drug abuse patient.The records that you are about to access may contain highly sensitive health information, the redisclosure of which is protected by Article 27-F of the [facility] Public Health law. If you continue you may have access to information: Regarding HIV / AIDS; Provided by facilities licensed or operated by the [facility] Office of Mental Health; or Provided by the [facility] Office for People With Developmental Disabilities. If such information is present, then the following [facility] mandated warning applies: This information has been disclosed to you from confidential records which are protected by state law. State law prohibits you from making any further disclosure of this information without the specific written consent of the person to whom it pertains, or as otherwise permitted by law. Any unauthorized further disclosure in violation of state law may result in a fine or correction sentence or both. A general authorization for the release of medical or other information is NOT sufficient authorization for further disc losure. Allergies and Adverse Reactions Type Description Substance Reaction Status Data Source(s ) Chlorhexidine Chlorhexidine Chlorhexidine Hives Active eCW1 ([facility]) Chlorhexidine Chlorhexidine Chlorhexidine Hives Active eCW1 ([facility]) Drug Allergy NKDA NKDA MEDENT ([facility]) Family History Family Member Name Family Member Gender Family Member Status Date o f Status Description Data Source(s) Unknown Unknown Problem MEDENT ([facility] mother Unknown Male Problem MEDENT ([facility]) Encounters Encounter Providers Location Date Indications Data Source(s ) [place] [address] [facility] [address] 06/13/2020 12:00:00 AM EST eCW1 ([facility]) [place] [address] [facility] [address] 06/13/2020 12:00:00 AM EST eCW1 ([facility] [place] [address] [facility] [facility] [address] 05/24/2020 12:00:00 AM EST eCW1 ([facility]) Unknown [address] [facility] [place] [address] 05/10/2020 12:00:00 AM EST eCW1 ([facility]) Outpatient Attender: CELESTINA JEAN BAPTISTE NP Family Practice 04/12/2020 01 :00:00 PM EDT MEDENT ([facility]) Outpatient Attender: CELESTINA JEAN BAPTISTE NPConsultant: PCP NO 04/12/2020 12:59:00 PM EDT - 04/12/2020 12:59:00 PM EDT [facility] Outpatient Attender: CELESTINA JEAN BAPTISTE NPConsultant: PCP NO 03/08/2020 03:21:00 PM EDT - 03/08/2020 03:21:00 PM EDT [facility] Outpatient Attender: MARCIA ZABALA [facility] Office 02/20 02:15:00 PM EDT MEDENT ([facility] [place] [address] [facility] [address] 01/10/2020 12:00:00 AM EDT eCW1 ([facility]) [place] [address] [facility] [place] [address] 01/09/2020 12:00:00 AM EDT eCW1 ([facility]) Unknown [address] [facility] [place] [address] 01/05/2020 12:00:00 AM EDT eCW1 ([facility]) Outpatient Attender: CELESTINA JEAN BAPTISTE NP Family Practice 12/05/2019 04 :00:00 PM EDT MEDENT ([facility]) Outpatient Attender: CELESTINA JEAN BAPTISTE NPConsultant: PCP NO 12/05/2019 03:58:00 PM EDT - 12/05/2019 03:58:00 PM EDT [facility] [place] [address] [facility] [address] 11/29/2019 12:00:00 AM EDT eCW1 ([facility]) [facility] [address] [place] [address] 11/29/2019 12:00:00 AM EDT eCW1 ([facility]) Outpatient Attender: CELESTINA JEAN BAPTISTE PAD MAKING MACHINE OPERATOR Family Practice 11/03/2019 04 :00:00 PM EDT MEDENT ([facility]) Outpatient Attender: CELESTINA JEAN BAPTISTE NPConsultant: PCP NO 11/03/2019 03:56:00 PM EDT - 11/03/2019 03:56:00 PM EDT [facility] Outpatient Attender: CELESTINA JEAN BAPTISTE NP Family Practice 11/01/2019 11 :00:00 AM EDT MEDENT ([facility]) Outpatient Attender: CELESTINA JEAN BAPTISTE NPConsultant: PCP NO 11/01/2019 10:52:00 AM EDT - 11/01/2019 10:52:00 AM EDT [facility] [place] [address] [facility] [address] 10/27/2019 12:00:00 AM EDT eCW1 ([facility]) Outpatient Attender: CELESTINA JEAN BAPTISTE NPConsultant: PCP NO 10/25/2019 03:26:00 PM EDT - 10/25/2019 03:26:00 PM EDT [facility] Outpatient Attender: CELESTINA JEAN BAPTISTE NPConsultant: PCP NO 10/19/2019 03:45:00 PM EDT - 10/19/2019 03:45:00 PM EDT [facility] Outpatient Attender: CELESTINA JEAN BAPTISTE PAD MAKING MACHINE OPERATOR Family Practice 10/19/2019 03 :30:00 PM EDT MEDENT ([facility]) [facility] [address] [place] [address] 10/03/2019 12:00:00 AM EDT eCW1 ([facility]) [facility] [address] [facility] [address] [address] 09/29/2019 12:00:00 AM EDT eCW1 ([facility]) [facility] [address] [facility] [place] [address] 09/26/2019 12:00:00 AM EDT eCW1 ([facility]) Outpatient Attender: Gloria Ryan MD Physical Therap y 09/16/2019 11:58:00 AM EDT MEDENT ([facility]) OFFICE OUTPATIENT NEW 30 MINUTES Attender: Gloria Gilbert am, MD Physical Therapy 08/18/2019 09:30:00 AM EST MEDENT ([facility]) [facility] [address] [place] [address] 08/10/2019 12:00:00 AM EST eCW1 ([facility]) Outpatient Attender: Melissa arizmenid 06/20/2019 04:30:00 PM EST MEDENT ([facility], [facility]) Medications Medication Brand Name Start Date Product Form Dose Route Admi nistrative Instructions Pharmacy Instructions Status Indications Reaction Description Data Source(s) Fluconazole 150 MG Oral Tablet [Diflucan] Diflucan 150 MG Di flucan 150 MG 06/13/2020 12:00:00 AM EST 1.0 {tablet} active Diflucan 150 MG eCW1 ([facility]) Augmentin 875-125 MG UNK 06/13/2020 12:00:00 AM EST 1.0 {tablet } active Augmentin 875-125 MG eCW1 ([facility]) Fluconazole 150 MG Oral Tablet [Diflucan] Diflucan 150 MG Di flucan 150 MG 06/13/2020 12:00:00 AM EST 1.0 {tablet} active Diflucan 150 MG eCW1 ([facility]) Augmentin 875-125 MG UNK 06/13/2020 12:00:00 AM EST 1.0 {tablet } active Augmentin 875-125 MG eCW1 ([facility]) Metronidazole 500 MG Oral Tablet Metronidazole 03/08/2020 12:00:00 AM EDT ORAL completed [facility] Metronidazole 500 MG Oral Tablet Metronidazole 11/01/2019 12:00:00 AM EDT ORAL completed MEDENT ([facility]) Escitalopram 5 MG Oral Tablet Escitalopram Oxalate 5 M G Escitalopram Oxalate 5 MG 10/27/2019 12:00:00 AM EDT 1.0 {tablet} activ e Escitalopram Oxalate 5 MG eCW1 ([facility]) Escitalopram 5 MG Oral Tablet Escitalopram Oxalate 5 M G Escitalopram Oxalate 5 MG 10/27/2019 12:00:00 AM EDT 1.0 {tablet} activ e Escitalopram Oxalate 5 MG eCW1 ([facility]) Escitalopram 5 MG Oral Tablet Escitalopram Oxalate 5 M G Escitalopram Oxalate 5 MG 10/27/2019 12:00:00 AM EDT active 1 tablet eCW1 ([facility]) Levonorgestrel 0.242492 MG/HR Drug Implant [Jazmyne] Jazmyne 10/25/2019 12:00:00 AM EDT active MEDENT ([facility]) Clindamycin 20 MG/ML Vaginal Cream [Cleocin] Cleocin 12:00:00 AM EDT completed MEDENT ([facility]) Ergocalciferol 94752 UNT Oral Capsule Vi tamin D (Ergocalciferol) 1.25 MG (19389 UT) Vitamin D (Ergocalciferol) 1.25 MG (52545 UT) 09/29/2019 12:00:0 0 AM EDT active 1 capsule eCW1 ([facility]) Betamethasone 0.5 MG/ML / Clotrimazole 1 0 MG/ML Topical Cream Clotrimazole- Betamethasone 1-0.05 % Clotrimazole-Betamethasone 1-0.05 % 08/10/2019 12:00:0 0 AM EST active 1 application eCW 1 ([facility]) Griseofulvin 500 MG Oral Tablet Griseofulvin Microsize 500 MG Griseofulvin Microsize 500 MG 08/10/2019 12:00:00 AM EST a ctive 1 tablet with a meal eCW1 ([facility]) Griseofulvin 500 MG Oral Tablet Griseofulvin Microsize 500 MG Griseofulvin Microsize 500 MG 08/10/2019 12:00:00 AM EST a ctive 1 tablet with a meal eCW1 ([facility]) Betamethasone 0.5 MG/ML / Clotrimazole 1 0 MG/ML Topical Cream Clotrimazole- Betamethasone 1-0.05 % Clotrimazole-Betamethasone 1-0.05 % 08/10/2019 12:00:0 0 AM EST active 1 application eCW 1 ([facility]) 200 ACTUAT Albuterol 0.09 MG/ACTUAT Metered Dose Inhaler [Pr oAir] Proair HFA 06/20/2019 12:00:00 AM EST RESPIRATORY active MEDENT ([facility]) Insurance Providers Payer name Policy type / Coverage type Policy ID Covered green party ID Covered green party's relationship to devries Policy Devries Plan Information [place]/307 [id number] SP [id number] [place] [place]/307 [id number] SP [id number] SELF PAY ONLY [id number] SP [id number] [facility] BS [id number] 18 [id number] [facility] [id number] 18 [id number] [place] [place] 302/307 [id number] SP [id number] [place] [id number] SP [id number] [employer] [place] O [id number] S [id number] [facility] [id number] 1 [id number] TOTAL PLAN CONCEPTS [id number] 18 [id number] Cigna/Conn Gen/Equ[employer] Commercial [id number] Self [id number] Total Plan Concepts Commercial [id number] Self [id number] C[employer] Healthcare Commercial [id number] Self [id number] [place] [id number] 18 [id number] [place] [id number] 18 [id number] O UNAVAILABLE UNAVAILA BLE [facility] [id number] SP [id number] [facility] O [id number] S [id number] Cigna[employer]Conn [employer] Commercial [id number] Self [id number] C[employer] Commercial [id number] Self [id number] [facility] QUENTIN 18 [facility] [id number] Self [id number] MVP Health Maintenance Organization (HMO) [id number] Self [id number] [facility] Health Plan [facility] Individual Policy [id number] Self [id number] Problems, Conditions, and Diagnoses Code Display Name Description Problem Type Effective Dates Data Source(s) K59.01 [id number] Slow transit constipation Problem 01/10/2020 12:00:00 AM EDT eCW1 ([facility]) F41.9 [id number] Anxiety Problem 10/27/2019 12:00:00 AM ED T eCW1 ([facility]) E55.9 [id number] Vitamin D deficiency Problem 10/27/2019 12:0 0:00 AM EDT eCW1 ([facility]) E55.9 [id number] Vitamin D deficiency Problem 10/27/2019 12:0 0:00 AM EDT eCW1 ([facility]) F41.9 [id number] Anxiety Problem 10/27/2019 12:00:00 AM ED T eCW1 ([facility]) J45.20 193680684 Mild intermittent asthma without complica tion Problem 09/26/2019 12:00:00 AM EDT eCW1 ([facility]) J30.9 24808912 Allergic rhinitis, unspecified s easonality, unspecified trigger Problem 09/26/2019 12:00:00 AM EDT eCW1 ([facility]) J45.20 [id number] Mild intermittent asthma without complica tion Problem 09/26/2019 12:00:00 AM EDT eCW1 ([facility]) J30.9 20625801 Allergic rhinitis, unspecified s easonality, unspecified trigger Problem 09/26/2019 12:00:00 AM EDT eCW1 ([facility]) [id number] Encounter for gynecological examination (general) (routine) without abnormal findings Encounter for gynecological examination (general) (routine) without abnormal findings Diagnosis 04/12/2020 12:59:00 PM EDT [facility] N760 Acute vaginitis Acute vaginitis Diagnosis 03/08/2020 03:2 1:00 PM EDT [facility] N43630 Encounter for routine checking of intrau terine contraceptive device Encounter for routine checking of intrauterine contraceptive device Diagnosis 12/05/2019 03:58:00 PM EDT [facility] S05184 Encounter for insertion of intrauterine contraceptive device Encounter for insertion of intrauterine contraceptive device Diagnosis 03:56:00 PM EDT [facility] Q51579 Encounter for initial prescription of in trauterine contraceptive device Encounter for initial prescription of intrauterine contraceptive device Diagnosis 10/25/2019 03:26:00 PM EDT [facility] Surgeries/Procedures Procedure Description Date Indications Data Source(s) RADEX FOOT COMPLETE MINIMUM 3 VIEWS 03/05/2020 12:00:0 0 AM EDT MEDENT ([facility] RADEX FOOT COMPLETE MINIMUM 3 VIEWS 03/05/2020 12:00:0 0 AM EDT MEDENT ([facility] THERAPEUTIC PX 1/> AREAS EACH 15 MIN EXERCISES 12:00:00 AM EDT MEDENT ([facility] MANUAL THERAPY TQS 1/> REGIONS EACH 15 MINUTES 020 12:00:00 AM EDT MEDENT ([facility]) THERAPEUTIC PX 1/> AREAS EACH 15 MIN EXERCISES 12:00:00 AM EDT MEDENT ([facility]) MANUAL THERAPY TQS 1/> REGIONS EACH 15 MINUTES 12:00:00 AM EDT MEDENT ([facility]) THERAPEUTIC PX 1/> AREAS EACH 15 MIN EXERCISES 12:00:00 AM EDT MEDENT ([facility]) MANUAL THERAPY TQS 1/> REGIONS EACH 15 MINUTES 12:00:00 AM EDT MEDENT ([facility]) Re-Eval Of PT Established Plan Of Care 20Mins Face To Face P T/Fam 11/18/2019 12:00:00 AM EDT MEDENT ([facility]) THERAPEUTIC PX 1/> AREAS EACH 15 MIN EXERCISES 12:00:00 AM EDT MEDENT ([facility]) MANUAL THERAPY TQS 1/> REGIONS EACH 15 MINUTES 12:00:00 AM EDT MEDENT ([facility]) THERAPEUTIC PX 1/> AREAS EACH 15 MIN EXERCISES 12:00:00 AM EDT MEDENT ([facility]) MANUAL THERAPY TQS 1/> REGIONS EACH 15 MINUTES 12:00:00 AM EDT MEDENT ([facility] ) PHYSICIAN TELEPHONE EVALUATION 11-20 MIN 10/27/2019 12 :00:00 AM EDT eCW1 ([facility]) MANUAL THERAPY TQS 1/> REGIONS EACH 15 MINUTES 12:00:00 AM EDT MEDENT ([facility] ) THERAPEUTIC PX 1/> AREAS EACH 15 MIN EXERCISES 12:00:00 AM EDT MEDENT ([facility] ) THERAPEUTIC PX 1/> AREAS EACH 15 MIN EXERCISES 12:00:00 AM EDT MEDENT ([facility] ) MANUAL THERAPY TQS 1/> REGIONS EACH 15 MINUTES 12:00:00 AM EDT MEDENT ([facility]) THERAPEUTIC PX 1/> AREAS EACH 15 MIN EXERCISES 12:00:00 AM EDT MEDENT ([facility]) MANUAL THERAPY TQS 1/> REGIONS EACH 15 MINUTES 12:00:00 AM EDT MEDENT ([facility]) THERAPEUTIC PX 1/> AREAS EACH 15 MIN EXERCISES 12:00:00 AM EDT MEDENT ([facility]) MANUAL THERAPY TQS 1/> REGIONS EACH 15 MINUTES 12:00:00 AM EDT MEDENT ([facility]) THERAPEUTIC PX 1/> AREAS EACH 15 MIN EXERCISES 12:00:00 AM EDT MEDENT ([facility]) MANUAL THERAPY TQS 1/> REGIONS EACH 15 MINUTES 12:00:00 AM EDT MEDENT ([facility]) THERAPEUTIC PX 1/> AREAS EACH 15 MIN EXERCISES 04/17/2 020 12:00:00 AM EDT MEDENT ([facility]) MANUAL THERAPY TQS 1/> REGIONS EACH 15 MINUTES 12:00:00 AM EDT MEDENT ([facility]) Physical Therapy Eval - Low Complexity 10/03/2019 12:0 0:00 AM EDT MEDENT ([facility]) TeleMedicine Est. Pt. Level 3 10/03/2019 12:00:00 AM E DT eCW1 ([facility]) RADEX SHOULDER COMPLETE MINIMUM 2 VIEWS 08/18/2019 12: 00:00 AM EST MEDENT ([facility]) Results ID Date Data Source [id number] 07/06/2020 10:00:00 AM EST [facility] Name Value Range Interpretation Code Description Data Maria D rce(s) Supporting Document(s) SARS coronavirus 2 RNA Not Detected [facility] [place] This lab was ordered by [facility] and reported by [facility]. ID Date Data Source [id number] 06/25/2020 10:30:00 AM EST [facility] Name Value Range Interpretation Code Description Data Maria D rce(s) Supporting Document(s) SARS coronavirus 2 RNA Not Detected [facility] This lab was ordered by [facility] and reported by [facility]. ID Date Data Source [id number] 06/11/2020 09:30:00 AM EST [facility] Name Value Range Interpretation Code Description Data Maria D rce(s) Supporting Document(s) SARS coronavirus 2 RNA [facility] This lab was ordered by [facility] and reported by [facility]. ID Date Data Source [id number] 2020 12:00:00 PM EST [facility] Name Value Range Interpretation Code Description Data Maria D rce(s) Supporting Document(s) SARS coronavirus 2 RNA [facility] This lab was ordered by [facility] and reported by [facility]. ID Date Data Source [id number] 05/28/2020 10:50:00 AM EST [facility] Name Value Range Interpretation Code Description Data Maria D rce(s) Supporting Document(s) SARS coronavirus 2 RNA [facility] This lab was ordered by [facility] and reported by [facility]. ID Date Data Source [id number] 05/21/2020 01:00:00 PM EST [facility] Name Value Range Interpretation Code Description Data Maria D rce(s) Supporting Document(s) SARS coronavirus 2 RNA [facility] This lab was ordered by [facility] and reported by [facility]. ID Date Data Source [id number] 05/09/2020 12:00:00 AM EST [facility] Name Value Range Interpretation Code Description Data Maria D rce(s) Supporting Document(s) 2019-nCoV RNA XXX OMERO+probe-Imp [facility] This lab was ordered by [facility] and reported by [employer] ID Date Data Source [id number] 05/07/2020 10:14:00 AM EST [facility] Name Value Range Interpretation Code Description Data Maria D rce(s) Supporting Document(s) SARS coronavirus 2 RNA [facility] This lab was ordered by [facility] and reported by [facility]. ID Date Data Source [id number] 04/30/2020 02:00:00 PM EST [facility] Name Value Range Interpretation Code Description Data Maria D rce(s) Supporting Document(s) SARS coronavirus 2 RNA [facility] This lab was ordered by [facility] and reported by [facility]. ID Date Data Source [id number] 04/23/2020 02:00:00 PM EST [facility] Name Value Range Interpretation Code Description Data Maria D rce(s) Supporting Document(s) SARS coronavirus 2 RNA [facility] This lab was ordered by [facility] and reported by [facility]. ID Date Data Source [id number] 04/16/2020 10:30:00 AM EDT [facility] Name Value Range Interpretation Code Description Data Maria D rce(s) Supporting Document(s) SARS coronavirus 2 RNA [facility] This lab was ordered by [facility] and reported by [facility]. ID Date Data Source [id number] 04/12/2020 01:32:00 PM EDT [facility] ([facility]) Name Value Range Interpretation Code Description Data Maria D rce(s) Supporting Document(s) Source: Laboratory test result [facility] ([facility]) {SOURCE: Genital~.~.~Z01.419 Neisseria gonorrhoeae,[facility] Laboratory test result [facility] ([facility]) {SOURCE: Genital~.~.~Z01.419 Chlamydia trachomatis,[facility] Laboratory test result [facility] ([facility]) {SOURCE: Genital~.~.~Z01.419 ID Date Data Source [id number] 04/15/2020 03:30:00 PM EDT [facility] Name Value Range Interpretation Code Description Data Maria D rce(s) Supporting Document(s) SOURCE: Genital [facility] Chlamydia trachomatis rRNA [Presence] in Unspecified specimen by Probe and target amplification method Negative Negative [facility] Neisseria gonorrhoeae rRNA [Presence] in Unspecified specimen by Probe and target amplification method Negative Negative [facility] ID Date Data Source [id number] 04/09/2020 07:30:00 AM EDT [facility] Name Value Range Interpretation Code Description Data Maria D rce(s) Supporting Document(s) SARS coronavirus 2 RNA [facility] This lab was ordered by [facility] and reported by [facility]. ID Date Data Source [id number] 04/02/2020 10:00:00 AM EDT [facility] Name Value Range Interpretation Code Description Data Maria D rce(s) Supporting Document(s) SARS coronavirus 2 RNA [facility] This lab was ordered by [facility] and reported by [facility]. ID Date Data Source [id number] 03/26/2020 10:00:00 AM EDT [facility] Name Value Range Interpretation Code Description Data Maria D rce(s) Supporting Document(s) SARS coronavirus 2 RNA [facility] This lab was ordered by [facility] and reported by [facility]. ID Date Data Source [id number] 03/19/2020 12:00:00 PM EDT [facility] Name Value Range Interpretation Code Description Data Maria D rce(s) Supporting Document(s) SARS coronavirus 2 RNA [facility] This lab was ordered by [facility] and reported by [facility]. ID Date Data Source [id number] 03/12/2020 11:15:00 AM EDT [facility] Name Value Range Interpretation Code Description Data Maria D rce(s) Supporting Document(s) SARS coronavirus 2 RNA [facility] This lab was ordered by [facility] and reported by [facility]. ID Date Data Source [id number] 03/08/2020 04:00:00 PM EDT [facility] ([facility]) Name Value Range Interpretation Code Description Data Maria D rce(s) Supporting Document(s) Inhouse [facility] [place] Laboratory test result [facility] ([facility]) ID Date Data Source [id number] 03/05/2020 10:00:00 AM EDT [facility] Name Value Range Interpretation Code Description Data Maria D rce(s) Supporting Document(s) SARS coronavirus 2 RNA [facility] This lab was ordered by [facility] and reported by [facility]. ID Date Data Source [id number] 02/29/2020 12:00:00 PM EDT [facility] Name Value Range Interpretation Code Description Data Maria D rce(s) Supporting Document(s) SARS coronavirus 2 RNA [facility] This lab was ordered by [facility] and reported by [facility]. ID Date Data Source [id number] 02/20/2020 08:17:00 AM EDT [facility] Name Value Range Interpretation Code Description Data Maria D rce(s) Supporting Document(s) SARS coronavirus 2 RNA [facility] This lab was ordered by [facility] and reported by [facility]. ID Date Data Source [id number] 02/13/2020 08:17:00 AM EDT [facility] Name Value Range Interpretation Code Description Data Maria D rce(s) Supporting Document(s) SARS coronavirus 2 RNA [facility] This lab was ordered by [facility] and reported by [facility]. ID Date Data Source [id number] 12/06/2019 03:31:00 PM EDT [facility] Name Value Range Interpretation Code Description Data Maria D rce(s) Supporting Document(s) SARS CORONAVIRUS 2 RNA [facility] This lab was ordered by [facility] and reported by [facility]. ID Date Data Source [id number] 11/29/2019 01:20:00 PM EDT [facility] Name Value Range Interpretation Code Description Data Maria D rce(s) Supporting Document(s) SARS CORONAVIRUS 2 RNA [facility] This lab was ordered by [facility] and reported by [facility]. ID Date Data Source [id number] 11/22/2019 11:19:00 AM EDT [facility] Name Value Range Interpretation Code Description Data Maria D rce(s) Supporting Document(s) SARS CORONAVIRUS 2 RNA [facility] This lab was ordered by [facility] and reported by [facility]. ID Date Data Source [id number] 11/16/2019 11:36:00 AM EDT [facility] Name Value Range Interpretation Code Description Data Maria D rce(s) Supporting Document(s) SARS CORONAVIRUS 2 RNA [facility] This lab was ordered by [facility] and reported by [facility]. ID Date Data Source [id number] 11/08/2019 11:00:00 AM EDT [facility] Name Value Range Interpretation Code Description Data Maria D rce(s) Supporting Document(s) SARS CORONAVIRUS 2 RNA [facility] This lab was ordered by [facility] and reported by [facility]. ID Date Data Source [id number] 11/03/2019 04:10:00 PM EDT [facility] ([facility]) Name Value Range Interpretation Code Description Data Maria D rce(s) Supporting Document(s) Inhouse Urine Test Laboratory test result [facility] ([facility]) ID Date Data Source [id number] 11/01/2019 11:39:00 AM EDT [facility] ([facility]) Name Value Range Interpretation Code Description Data Maria D rce(s) Supporting Document(s) Inhouse [facility] [place] Laboratory test result [facility] ([facility]) ID Date Data Source [id number] 11/01/2019 11:39:00 AM EDT [facility] ([facility]) Name Value Range Interpretation Code Description Data Maria D rce(s) Supporting Document(s) Neisseria gonorrhoeae,[facility] Laboratory test result [facility] ([facility]) {SOURCE: Genital~.~.~N76.0 Chlamydia trachomatis,[facility] Laboratory test result [facility] ([facility]) {SOURCE: Genital~.~.~N76.0 Source: Laboratory test result [facility] ([facility]) {SOURCE: Genital~.~.~N76.0 ID Date Data Source [id number] 11/03/2019 02:33:00 PM EDT [facility] Name Value Range Interpretation Code Description Data Maria D rce(s) Supporting Document(s) SOURCE: Genital [facility] Chlamydia trachomatis rRNA [Presence] in Unspecified specimen by Probe and target amplification method Negative Negative [facility] Neisseria gonorrhoeae rRNA [Presence] in Unspecified specimen by Probe and target amplification method Negative Negative [facility] ID Date Data Source [id number] 10/19/2019 04:40:00 PM EDT [facility] ([facility]) Name Value Range Interpretation Code Description Data Maria D rce(s) Supporting Document(s) Inhouse Wet [facility] Laboratory test result [facility] ([facility]) ID Date Data Source [id number] 09/26/2019 12:00:00 AM EDT eCW1 ([facility]) Name Value Range Interpretation Code Description Data Maria D rce(s) Supporting Document(s) Hemoglobin A1c/Hemoglobin.total in Blood 4.9 HEMOGLOBIN A1c eCW1 ([facility]) ID Date Data Source LIPID PANEL (CARDIAC RISK) 09/26/2019 12:00:00 AM EDT eCW1 ( [facility]) Name Value Range Interpretation Code Description Data Maria D rce(s) Supporting Document(s) Triglyceride [Mass/volume] in Serum or Plasma by calculation 82 <150 TRIGLYCERIDES LEVEL eCW1 ([facility]) Cholesterol in HDL [Moles/volume] in Serum or Plasma 62 >40 HDL CHOLESTEROL eCW1 ([facility]) Cholesterol [Moles/volume] in Serum or Plasma 178 <200 CHOLESTEROL LEVEL eCW1 ([facility]) Cholesterol in LDL [Mass/volume] in Serum or Plasma by calculation 100 <100 LDL CHOLESTEROL eCW1 ([facility]) 116 NON-HDL-C eCW1 ([facility]) 2.870 <5 CHOLESTEROL RISK RATIO eCW1 ([facility]) ID Date Data Source VITAMIN [id number] 09/26/2019 12:00:00 AM EDT eCW1 ([facility]) Name Value Range Interpretation Code Description Data Maria D rce(s) Supporting Document(s) 15.0 30.0-100.0 TOTAL 25(OH) VITAMIN D eC W1 ([facility]) ID Date Data Source FREE T4 & TSH PANEL 09/26/2019 12:00:00 AM EDT eCW1 ([facility]) Name Value Range Interpretation Code Description Data Maria D rce(s) Supporting Document(s) 0.623 0.358-3.740 THYROID STIMULATING HORM ONE eCW1 ([facility]) 0.91 0.76-1.46 FREE T4 eCW1 ([facility]) ID Date Data Source Comprehensive Metabolic Profile (CMP) 09/26/2019 12:00:00 AM EDT eCW1 ([facility]) Name Value Range Interpretation Code Description Data Maria D rce(s) Supporting Document(s) 0.66 0.55-1.30 CREATININE FOR GFR eCW1 ([facility]) 15 7-18 BLOOD UREA NITROGEN eCW1 ([facility]) 75 70-100 GLUCOSE, FASTING eCW1 ([facility]) 108 98-107 CHLORIDE LEVEL eCW1 ([facility]) 4.4 3.5-5.1 POTASSIUM SERUM eCW1 ([facility]) > 60.0 >60 GLOMERULAR FILTRATION RATE eCW 1 ([facility]) 139 136-145 SODIUM LEVEL eCW1 ([facility]) 8.9 8.5-10.1 CALCIUM LEVEL eCW1 ([facility]) 28 21-32 CARBON DIOXIDE LEVEL eCW1 ([facility]) 23 12-78 ALT/SGPT eCW1 ([facility]) 19 7-37 AST/SGOT eCW1 ([facility]) 6.7 6.4-8.2 TOTAL PROTEIN eCW1 ([facility]) 47 45-117 ALKALINE PHOSPHATASE eCW1 ([facility]) 0.2 0.2-1.0 BILIRUBIN,TOTAL eCW1 ([facility]) 1.03 1.00-1.93 ALBUMIN/GLOBULIN RATIO eCW1 ([facility]) 3.4 3.2-5.2 ALBUMIN eCW1 ([facility]) ID Date Data Source CBC with Differential 09/26/2019 12:00:00 AM EDT eCW1 ([facility]) Name Value Range Interpretation Code Description Data Maria D rce(s) Supporting Document(s) 4.02 4.00-5.40 RED BLOOD COUNT eCW1 ([facility]) 5.2 4.0-10.0 WHITE BLOOD COUNT eCW1 ([facility]) 93.8 80.0-96.0 MEAN CORPUSCULAR VOLUME e CW1 ([facility]) 12.9 12.0-15.5 HEMOGLOBIN eCW1 ([facility]) 37.7 36.0-47.0 HEMATOCRIT eCW1 ([facility]) 34.2 32.0-36.5 MEAN CORPUSCULAR HGB CONC eCW1 ([facility]) 32.1 27.0-33.0 MEAN CORPUSCULAR HEMOGLOB IN eCW1 ([facility]) 48.7 36.0-66.0 NEUTROPHILS % eCW1 ([facility]) 225 150-450 PLATELET COUNT, AUTOMATED eCW1 ([facility]) 12.4 11.5-14.5 RED CELL DISTRIBUTION WID TH eCW1 ([facility]) 9.2 0.0-5.0 MONO % eCW1 ([facility]) 36.9 24.0-44.0 LYMPH % eCW1 ([facility]) 0.6 0.0-1.0 BASO % eCW1 ([facility]) 4.4 0.0-3.0 EOS % eCW1 ([facility]) 2.5 1.5-8.5 NEUTROPHILS # eCW1 ([facility]) 1.9 1.5-5.0 LYMPH # eCW1 ([facility]) 0.5 0.0-0.8 MONO # eCW1 ([facility]) 0.0 0.0-0.2 BASO # eCW1 ([facility]) 0.2 0.0-0.5 EOS # eCW1 ([facility]) Procedure Social History Code Duration Value Status Description Data Source(s ) Smoking 06/13/2020 12:00:00 AM EST Never Smoker completed Never S moker eCW1 ([facility]) Smoking 06/13/2020 12:00:00 AM EST Never Smoker completed Never S moker eCW1 ([facility]) Smoking 01/10/2020 12:00:00 AM EDT Never Smoker completed Never S moker eCW1 ([facility]) Smoking 01/10/2020 12:00:00 AM EDT Never Smoker completed Never S moker eCW1 ([facility]) Smoking 01/10/2020 12:00:00 AM EDT Never Smoker completed Never S moker eCW1 ([facility]) Smoking 01/10/2020 12:00:00 AM EDT Never Smoker completed Never S moker eCW1 ([facility]) Smoking 11/29/2019 12:00:00 AM EDT Never Smoker completed Never S moker eCW1 ([facility]) Vital Signs ID Date Data Source UNK Name Value Range Interpretation Code Description Data Source(s) Diastolic blood pressure 80 mm[Hg] 80 mm[Hg] eCW1 ([facility]) Systolic blood pressure 120 mm[Hg] 120 mm[Hg] e CW1 ([facility]) Body temperature 97.6 [degF] 97.6 [degF] eCW1 ( [facility]) Respiratory rate 18 /min 18 /min eCW1 ([facility]) Heart rate 80 /min 80 /min eCW1 ([facility]) Body mass index (BMI) [Ratio] 21.96 kg/m2 21.96 kg/m2 W1 ([facility]) Body height 65 [in_i] 65 [in_i] eCW1 ([facility]) Body weight 132 [lb_av] 132 [lb_av] eCW1 ([facility]) Body surface area Derived from formula 1.65 m2 1.65 m2 MED[facility] ([facility]) Body mass index (BMI) [Ratio] 21.6 kg/m2 21.6 k g/m2 [facility] ([facility]) Body height 65 [in_i] 65 [in_i] [facility] ([facility]) 5'5" Body weight 58.968 kg 58.968 kg [facility] ([facility]) Body weight 130.00 [lb_av] 130.00 [lb_av] MEDEN T ([facility]) Body temperature 98.6 [degF] 98.6 [degF] [facility] ([facility]) Heart rate 75 /min 75 /min [facility] ([facility]) Diastolic blood pressure 75 mm[Hg] 75 mm[Hg] [facility] ([facility]) Systolic blood pressure 110 mm[Hg] 110 mm[Hg] M EDENT ([facility]) Body surface area Derived from formula 1.63 m2 1.63 m2 [facility] ([facility]) Body mass index (BMI) [Ratio] 21.1 kg/m2 21.1 k g/m2 [facility] ([facility]) Body height 65 [in_i] 65 [in_i] [facility] ([facility]) 5'5" Body weight 57.607 kg 57.607 kg [facility] ([facility]) Body weight 127.00 [lb_av] 127.00 [lb_av] MEDEN T ([facility]) Body temperature 98.6 [degF] 98.6 [degF] [facility] ([facility]) Heart rate 70 /min 70 /min [facility] ([facility]) Diastolic blood pressure 65 mm[Hg] 65 mm[Hg] [facility] ([facility]) Systolic blood pressure 105 mm[Hg] 105 mm[Hg] M EDENT ([facility]) Body mass index (BMI) [Ratio] 20.6 kg/m2 20.6 k g/m2 [facility] ([facility] Heart rate 85 /min 85 /min [facility] ([facility] Diastolic blood pressure 65 mm[Hg] 65 mm[Hg] [facility] ([facility] Systolic blood pressure 110 mm[Hg] 110 mm[Hg] M EDENT ([facility] Body weight 124.00 [lb_av] 124.00 [lb_av] MEDEN T ([facility] Body height 65 [in_i] 65 [in_i] [facility] ([facility] 5'5" Diastolic blood pressure 78 mm[Hg] 78 mm[Hg] eCW1 ([facility]) Systolic blood pressure 110 mm[Hg] 110 mm[Hg] e CW1 ([facility]) Body temperature 97.6 [degF] 97.6 [degF] eCW1 ( [facility]) Respiratory rate 18 /min 18 /min eCW1 ([facility]) Heart rate 78 /min 78 /min eCW1 ([facility]) Body mass index (BMI) [Ratio] 21.13 kg/m2 21.13 kg/m2 W1 ([facility]) Body height 65 [in_i] 65 [in_i] eCW1 ([facility]) Body weight 127 [lb_av] 127 [lb_av] eCW1 ([facility]) Body surface area Derived from formula 1.64 m2 1.64 m2 [facility] ([facility]) Body mass index (BMI) [Ratio] 21.3 kg/m2 21.3 k g/m2 [facility] ([facility]) Body height 65 [in_i] 65 [in_i] [facility] ([facility]) 5'5" Body weight 58.061 kg 58.061 kg [facility] ([facility]) Body weight 128.00 [lb_av] 128.00 [lb_av] MEDEN T ([facility]) Body temperature 98.3 [degF] 98.3 [degF] [facility] ([facility]) Heart rate 73 /min 73 /min [facility] ([facility]) Diastolic blood pressure 83 mm[Hg] 83 mm[Hg] [facility] ([facility]) Systolic blood pressure 115 mm[Hg] 115 mm[Hg] M EDENT ([facility]) Body surface area 1.64 m2 1.64 m2 [facility] ([facility]) Body surface area 2.31 [facility]2 2.31 [facility]2 [facility] Body mass index (BMI) [Ratio] 48.1 kg/m2 48.1 k g/m2 [facility] Body height 65 [in_i] 65 [in_i] [facility] ([facility]) 5'5" Body weight 131.000 kg 131.000 kg [facility] ([facility]) Body weight 288.81 [lb_av] 288.81 [lb_av] MEDEN T ([facility]) Body temperature 98.2 [degF] 98.2 [degF] [facility] ([facility]) Heart rate 69 /min 69 /min [facility] ([facility]) Diastolic blood pressure 92 mm[Hg] 92 mm[Hg] [facility] Systolic blood pressure 136 mm[Hg] 136 mm[Hg] M EDENT ([facility]) Body surface area 1.66 m2 1.66 m2 [facility] ([facility]) Body mass index (BMI) [Ratio] 22.0 kg/m2 22.0 k g/m2 [facility] Body height 65 [in_i] 65 [in_i] [facility] ([facility]) 5'5" Body weight 59.875 kg 59.875 kg [facility] ([facility]) Body weight 132.00 [lb_av] 132.00 [lb_av] MEDEN T ([facility]) Body temperature 98.6 [degF] 98.6 [degF] [facility] ([facility]) Heart rate 60 /min 60 /min [facility] ([facility]) Diastolic blood pressure 85 mm[Hg] 85 mm[Hg] [facility] ([facility]) Systolic blood pressure 128 mm[Hg] 128 mm[Hg] M EDENT ([facility]) Body weight 57.607 kg 57.607 kg [facility] ([facility]) Body weight 127.00 [lb_av] 127.00 [lb_av] MEDEN T ([facility]) Body temperature 98.7 [degF] 98.7 [degF] [facility] ([facility]) Heart rate 68 /min 68 /min [facility] ([facility]) Diastolic blood pressure 90 mm[Hg] 90 mm[Hg] [facility] ([facility]) Systolic blood pressure 116 mm[Hg] 116 mm[Hg] M EDENT ([facility]) Diastolic blood pressure 80 mm[Hg] 80 mm[Hg] eCW1 ([facility]) Systolic blood pressure 132 mm[Hg] 132 mm[Hg] e CW1 ([facility]) Body temperature 98.2 [degF] 98.2 [degF] eCW1 ( [facility]) Respiratory rate 18 /min 18 /min eCW1 ([facility]) Heart rate 86 /min 86 /min eCW1 ([facility]) Body mass index (BMI) [Ratio] 21.26 kg/m2 21.26 kg/m2 W1 ([facility]) Body height 65 [in_us] 65 [in_us] eCW1 ([facility]) Body weight Measured 127.8 [lb_av] 127.8 [lb_av ] eCW1 ([facility]) Body mass index (BMI) [Ratio] 21.4 kg/m2 21.4 k g/m2 [facility] ([facility]) Body weight 126.50 [lb_av] 126.50 [lb_av] MEDEN T ([facility]) Body height 64.5 [in_i] 64.5 [in_i] MED[facility] ([facility]) 5'4.50" Body temperature 98.6 [degF] 98.6 [degF] [facility] ([facility] Diastolic blood pressure 84 mm[Hg] 84 mm[Hg] eCW1 ([facility]) Systolic blood pressure 118 mm[Hg] 118 mm[Hg] e CW1 ([facility]) Body mass index (BMI) [Ratio] 20.90 kg/m2 20.90 kg/m2 eCW1 ([facility]) Body height 65 [in_us] 65 [in_us] eCW1 ([facility]) Body weight Measured 125.6 [lb_av] 125.6 [lb_av ] eCW1 ([facility]) Body mass index (BMI) [Ratio] 20.6 kg/m2 20.6 k g/m2 MED[facility] ([facility]) Body height 65 [in_i] 65 [in_i] MED[facility] ([facility]) 5'5" Body weight 124.00 [lb_av] 124.00 [lb_av] MEDEN T ([facility], [facility]) Body temperature 98.9 [degF] 98.9 [degF] MEDENT ([facility], [facility]) Oxygen saturation in Arterial blood by Pulse oximetry 99 % 99 % MED[facility] ([facility], [facility]) Respiratory rate 12 /min 12 /min MED[facility] ( [facility], [facility]) Heart rate 84 /min 84 /min MEDENT ([facility], [facility]) Diastolic blood pressure 89 mm[Hg] 89 mm[Hg] MEDENT ([facility], [facility]) Systolic blood pressure 123 mm[Hg] 123 mm[Hg] M EDENT ([facility], [facility]) Patient Treatment Plan of Care Planned Activity Planned Date Details Description Data Source (s) Fluconazole 150 MG Oral Tablet [Diflucan] 06/13/2020 12:00:00 AM ES T eCW1 ([facility]) Augmentin 875-125 MG 06/13/2020 12:00:00 AM EST eCW1 ([facility]) Fluconazole 150 MG Oral Tablet [Diflucan] 06/13/2020 12:00:00 AM ES T eCW1 ([facility]) Augmentin 875-125 MG 06/13/2020 12:00:00 AM EST eCW1 ([facility]) Escitalopram 5 MG Oral Tablet 10/27/2019 12:00:00 AM EDT eCW1 ([facility]) Ergocalciferol 62482 UNT Oral Capsule 09/29/2019 12:00:00 AM EDT eCW1 ([facility]) Griseofulvin 500 MG Oral Tablet 08/10/2019 12:00:00 AM EST eCW1 ([facility]) Betamethasone 0.5 MG/ML / Clotrimazole 10 MG/ML Topica l Cream 08/10/2019 12:00:00 AM EST eCW1 ([facility])
--- OUTSIDE RECORDS SUMMARY | 2020-07-11 06:14 | CCD | Continuity of Care Document ---
Author Author Deanna OCHOA Organization Unknown Address [address] [place] [id number] Phone [phone] Problems Description No Information Available Social History [...] Date Facility Test Result H/L Range Note Chlamydia GC/Am 04/12/2020 [facility] Source: Genital 1 Chlamydia trachomatis,Supriya Negative Negative Neisseria gonorrhoeae,Supriya Negative Negative Order 03/08/2020 In Office Inhouse [place] + clue Laboratory test finding 11/03/2019 In Office Inhouse Urine Test negative Chlamydia GC/Am 11/01/2019 [facility] Source: Genital 2 Chlamydia trachomatis,Supriya Negative Negative Neisseria gonorrhoeae,Supriya Negative Negative Order 11/01/2019 In Office Inhouse [place] + clue Order 10/19/2019 In Office Inhouse [place] + clue 1 {SOURCE: Genital~.~.~Z01.41 9 2 {SOURCE: Genital~.~.~N76.0 Procedures Description No Information Available Medical Devices Description No Information Available Encounters Type Date Location Provider Dx Diagnosis Office Visit 04/12/2020 1:[address] [facility] Afsaneh Barrios NP Z01.419 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) (routine) w/o abn findings Z30.431 Encounter for routine checki ng of intrauterine contracep dev Assessments Date Code Description Provider 04/12/2020 Z01.419 Encounter for gyneco logical examination (general) (routine) without abnormal findings Afsaneh Barrios NP 04/12/2020 Z30.431 Encounter for routin e checking of intrauterine contraceptive device Afsaneh O'nico, ICT TEACHER 03/08/2020 N76.0 Acute vaginitis Afsaneh O'nico, ICT TEACHER 12/05/2019 Z30.431 Encounter for routin e checking of intrauterine contraceptive device Afsaneh O'nico, ICT TEACHER 11/03/2019 Z30.430 Encounter for insertion of intra uterine contraceptive device Afsaneh O'nico, ICT TEACHER 11/01/2019 N76.0 Acute vaginitis Afsaneh O'nico, ICT TEACHER 10/25/2019 Z30.014 Encounter for initia l prescription of intrauterine contraceptive device Afsaneh O'nico, ICT TEACHER 10/19/2019 N76.0 Acute vaginitis Afsaneh O'nico, INA Plan of Treatment 04/12/2020 - Afsaneh Piper'nico, INA* Z01.419 Encounter for gynecological examination (general) (routine) without abnormal findings* Follow up:* 1 year. * Recommendations:* reviewed pap guidelines and SBE. * Instructions:* Call for problems or questions * Z30.431 Encounter for routine checking of intrauterine contraceptive device* Recommendations:* moniter menses and string length. Functional Status Functional Condition Comment Date Status Contacts Active Mental Status Description No Information Available Referrals Description No Information Available
[2020-07-11] MEDS ORDERED: LIDOCAINE 1% SDV 30ML VIAL As Ordered ONE (06:48)
[2020-07-11] MEDS ORDERED: BUPIVACAINE HCL 0.5% 30 ML VIAL As Ordered ONE (06:49)
[2020-07-11] MEDS ORDERED: dexameTHASONE 4 MG/ML 1ML VIAL (J1100 PER 1MG) As Ordered ONE (06:49)
[2020-07-11] MEDS ORDERED: propofoL 200 MG/20 ML VIAL As Ordered ONE (07:11)
[2020-07-11] MEDS ORDERED: MIDAZOLAM INJ 2MG/2ML VIAL (J2250 PER 1MG) As Ordered ONE (07:19)
[2020-07-11] MEDS ORDERED: KETAMINE HCL 200 MG/20 ML VIAL As Ordered ONE (07:19)
[2020-07-11] MEDS ORDERED: LIDOCAINE 2% 100MG/5ML SDV (FOR ANES.) As Ordered ONE (07:19)
[2020-07-11] MEDS ORDERED: ACETAMINOPHEN 1000MG 100ML IV BTL (OFIRMEV) (J0131 PER 10MG) As Ordered ONE (07:49)
[2020-07-11] MEDS ORDERED: HYDR-3713 PO (08:39)
--- NOTE | 2020-07-11 09:28 | RO ---
OPERATIVE NOTE DATE OF OPERATION: 07/11/2020 PREOPERATIVE DIAGNOSES: Right foot hallux valgus and left fifth hammertoe. POSTOPERATIVE DIAGNOSES: Right foot hallux valgus and left fifth hammertoe. PROCEDURES: Right John osteotomy and left fifth hammertoe correction. SURGEON: Stanley Carrillo DPM ANDROID ARCHITECT: None ANESTHESIA: Monitored anesthesia care. PREOPERATIVE INJECTION: 9 mL of a 1:1 mixture of 1% lidocaine plain and 0.5% Marcaine plain. ESTIMATED BLOOD LOSS: Minimal. MATERIALS: Arthrex DynaNite staple, 3-0 Vicryl and 4-0 Vicryl, and 4-0 nylon. INJECTABLES: 1 mL of Decadron; 4 mg/mL COMPLICATIONS: None. CONDITION: Stable. INDICATION: Deanna Bob is a 25-year-old female who has painful hallux valgus on her right and left fifth hammertoe deformity. She presents today for surgical correction. The patient's side and site were identified and marked in the preoperative holding area. Consent was reviewed and obtained. All risks, complications, and alternatives to the procedure were explained to the patient in detail and all questions were answered. DESCRIPTION OF PROCEDURE: The patient was brought to the operating room and placed on the operating room table in the supine position. Monitored anesthesia care was delivered by the anesthesia team. Preoperative injection of 9 mL of a 1:1 mixture of 1% lidocaine plain and 0.5% Marcaine plain were injected in the right foot. The right foot was prepped and draped in normal sterile fashion. Tourniquets were applied to both ankles and inflated to 250 mmHg. Attention was first paid to the left foot. A dorsal incision was made over the left 5th toe and carried through with a #15 blade. Dissection was carried to the proximal interphalangeal joint. Extensor tenotomy was performed at this level exposing the proximal phalanx head. Collateral ligaments were released and the head of the proximal phalanx of the 5th toe was resected with sagittal saw and smoothed with a rasp. The site was irrigated with normal saline. Extensor tendons were repaired with 3-0 Vicryl and the skin closure was performed with 4-0 nylon. Next, attention was paid to the right foot. A dorsal incision was made over the right hallux and carried through with a #15 blade. The overlying soft tissue to the proximal phalanx was reflected exposing the bone of the proximal phalanx. A wedge of medial cortex was removed using sagittal saw effectively placing the toe in a more medial position and this was fixated with an Arthrex DynaNite staple. The site was irrigated with normal saline. Closure was performed with 4-0 Vicryl and 4-0 nylon. 1 mL of Decadron was injected. Sterile dressings were applied. Tourniquets were deflated. The patient was brought to the PACU with vital signs stable and neurovascular status intact. She will be weightbearing as tolerated. She will follow up in the office in two days.
[2020-07-11 09:54] VITALS: BP 118/73
== END 2020-07-11 10:25 | disposition home or self-care (01) ==
LOC: M SDC 06:08
PROVIDERS: ATTEND Podiatrist Foot & Ankle Surgery
DX: M20.11 Hallux valgus (acquired), right foot (principal); M20.42 Other hammer toe(s) (acquired), left foot; K21.9 Gastro-esophageal reflux disease without esophagitis; Z79.899 Other long term (current) drug therapy; F41.9 Anxiety disorder, unspecified; Z91.040 Latex allergy status; Z88.8 Allergy status to other drugs, medicaments and biological substances
CPT/HCPCS: 28285; 28298; 81025; 88300; 97116; 97161; C1713; J0131; J0690; J1100; J2250